=== PATIENT | male | born 1995 | race Caucasian/White ===

== ENCOUNTER 2023-05-19 13:38 | Outpatient (AMB) | payer OTHER, SELFPAY ==
[2023-05-19 13:43] VITALS: BP 102/62; PULSE 69; O2SAT 99; BMI 25.1
--- NOTE | 2023-05-19 13:43 | A.OFFPC_ITS ---
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 Accompanied by: Self / Same As Patient Allergies No Known Allergies Allergy (Verified 05/19/23 14:10) Medication List - Last Reconciled 05/19/23 by Regino Desai MD No Known Home Meds Tobacco use date assessed: 05/19/23 Dental Screening Dental Screen Date: 05/19/23 Did you have a dental visit in the last 12 months?: Yes Did you have a dental problem in the last 6 months where you did not have access to dental care?: No Was dental information given to patient?: Patient has dentist HPI 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 HPI Details Patient comes in today to establish care - is a new patient to the practice States that he has been experiencing on and off pain over his upper chest wall/collarbone area for the past couple of months and that the pain would radiate into his back (around the shoulder blade area) at times He is currently working out/exercising at a local gym regularly and states that his symptoms do not seem to have any (consistent) association with activity or exertion as they have not bothered him while he was working out over the past couple of weeks Relates that his symptoms do not seem to be associated with any shortness of breath, headaches or dizziness but he is starting to feel worried / anxious about his symptoms States that he feels okay otherwise No nausea/vomiting, no abdominal pain No change in bowel habits noted He denies any acute urinary symptoms [facility] Medical History (Updated 05/19/23 @ 14:40 by Regino Desai MD) History of alcohol use History of drug use Anxiety Surgical History (Updated 05/19/23 @ 14:34 by Regino Desai MD) No pertinent past surgical history Family History Other HTN (hypertension) Heart attack Substance abuse Social History Housing: Apartment Patient Tobacco Use Status: Former Tobacco user e-Cigarette/Vaping Use: Former Use service: No Current occupational status: employed 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 1. Little interest or pleasure in doing things: not at all 2. Feeling down, depressed, or hopeless: not at all 3. Trouble falling or staying asleep, or sleeping too much: not at all 4. Feeling tired or having little energy: not at all 5. Poor appetite or overeating: not at all 6. Feeling bad about yourself - or that you are a failure or have let yourself or your family down: not at all 7. Trouble concentrating on things, such as reading the newspaper or watching television: not at all 8. Moving or speaking so slowly that other people could have noticed. Or the opposite - being so fidgety or restless that you have been moving around a lot more than usual: not at all 9. Thoughts that you would be better off or of hurting yourself in some way: not at all Total score: 0 Depression Screening Interpretation: Negative 49294 - PHQ-9 Billing: Yes Source: Developed by Drs. Min Cerrato, Reta Christina, Byron Baxter and colleagues, with an educational dre from [employer]. Thrive Questionnaire Date Thrive assessed: 05/19/23 I am a: Patient What is your living situation today?: I have a steady place to live Within the past 12 months, did the food you bought not last and you didn't have the money to get more?: Never true Within the past 12 months, did you worry whether your food would run out before you got money to buy more?: Never true Do you have trouble paying for medicines?: No Do you have trouble getting transportation to medical appointments?: No Do you have trouble paying your heating and electricity bill?: No Do you have trouble taking care of your child, family member or friend?: No Do you have trouble with day-to-day activities such as bathing, preparing meals, shopping, managing finances, etc.?: No Are you currently unemployed and looking for a job?: No Are you interested in more education?: No Currently or been in a relationship where the following occur: no concerns reported AUDIT C Alcohol Use Questionnaire (AUDIT-C) 1. How often do you have a drink containing alcohol?: Never 3. How often do you have six or more drinks on one occasion?: Never Total Score: 0 Score Reviewed/Action Taken: Yes ANGEL-7 AMB Questionnaire ANGEL-7 Date ANGEL - 7 assessed: 05/19/23 Feeling nervous, anxious, or on edge: 2 = More than half the days Not being able to stop or control worryin = Not at all Worrying too much about different things: 0 = Not at all Trouble relaxin = Not at all Being so restless that it is hard to sit still: 0 = Not at all Becoming easily annoyed or irritable: 0 = Not at all Feeling afraid as if something awful might happen: 0 = Not at all Total ANGEL-7 score (0-4 normal; 5-9 mild; 10-14 moderate; 15-21 severe): 2 Source: Developed by Drs. Min Cerrato, Reta Christina, Byron Baxter and colleagues, with an educational dre from [employer]. Review of Systems Const Denies chills, Denies fatigue, Denies fever(s), Denies headache(s), Denies malaise and Denies weakness Eyes Denies blurry vision, Denies change in vision, Denies irritation and Denies itchy eyes ENT Denies dysphagia, Denies dizziness, Denies otalgia, Denies headache(s), Denies nasal congestion, Denies neck pain, Denies odynophagia and Denies sore throat Card Reports chest pain (on and off over the upper chest wall - see HPI), Denies chest pain with activity, Denies rapid heart rate, Denies irregular heart rhythm, Denies palpitations and Denies dyspnea Resp Denies chest congestion, Denies cough, Denies dyspnea and Denies wheezing GI Denies abdominal pain, Denies bloating, Denies constipation, Denies dysphagia, Denies heartburn, Denies diarrhea, Denies nausea, Denies odynophagia and Denies vomiting Denies hematuria, Denies difficulty urinating, Denies dysuria, Denies urinary frequency and Denies urinary urgency Musc Details: on and off sharp pains over the right upper chest muscles that radiate up into the clavicular area and back to the scapular area at times Denies back pain, Denies arthralgias, Denies joint swelling, Denies muscle weakness and Denies neck pain Skin/Breast Denies change in pigmentation, Denies lesions, Denies rash and Denies unusual bruising Neuro Denies dizziness, Denies headache(s), Denies paresthesias and Denies weakness Psych Reports anxiety Endo Denies fatigue and Denies palpitations Aller/Immun Denies itchy eyes and Denies wheezing Physical exam (Primary Care) Vital Signs: Last Vital Signs Pulse 69 05/19/23 13:43 BP 102/62 05/19/23 13:43 Pulse Ox 99 05/19/23 13:43 Oxygen Delivery Method Room Air 05/19/23 13:43 BMI result Body Mass Index 25.1 Tobacco/Smoking Status: Tobacco use Status Tobacco use date assessed 05/19/23 05/19/23 13:51 Patient Tobacco Use Status Former Tobacco user 05/19/23 13:51 e-Cigarette/Vaping Use Former Use 05/19/23 13:51 PHQ-9: PHQ-9 Score PHQ-9: Total score 0 05/19/23 14:36 Depression Screening Interpretation: Negative Thrive Assessment: Date of Thrive Assessment Date Thrive assessed 05/19/23 05/19/23 13:51 Currently or been in a relationship where the following occur: no concerns reported Const General: no acute distress, alert and awake Orientation/consciousness: patient oriented x3 HENMT Head: Yes normocephalic and Yes atraumatic Ears: external ears normal, TM's normal bilaterally and EAC's normal General nose exam: No nasal discharge present Face and sinus: Yes normal facial exam and Yes sinuses nontender Teeth and gingiva: dentition normal Throat: Yes posterior oropharynx normal and Yes tonsils normal (no TP congestion) Eyes Eyelids: Yes eyelids normal Conjunctivae: conjunctivae normal Pupils: Equal, round and reactive pupils present EOM: EOMs intact bilaterally Neck Neck: Yes no lymphadenopathy and Yes supple Thyroid: Thyroid normal Chest Other: No reproducible tenderness elicited on exam/palpation over the entire right chest wall/muscles Chest palpation & inspection: normal inspection of the chest, normal palpation of entire chest wall and no tenderness Resp Auscultation: clear to auscultation bilaterally, no rales and no wheezes Cardio Rate: regular rate Rhythm: regular rhythm Heart sounds: no murmurs GI Palpation (GI): Soft to palpation, nontender and No hepatosplenomegaly present Auscultation: normal bowel sounds General: Yes no CVA tenderness Back/Spine/Pelvis Back: no CVA tenderness Thoracic/Lumbar Spine: thoracic and lumbar spine normal to inspection Skin Lesions: no lesions Rashes: no rashes Neuro General: patient oriented x3, moves all extremities, no focal motor deficits and CN's II-XI intact bilaterally Cranial nerves: Yes Equal, round and reactive pupils present Cognition (Neuro): normal cognition Gait exam (Neuro): Normal gait present Extrem General: Yes no clubbing, cyanosis or edema Right upper extremity: shoulder/upper arm Details: normal ROM; no tenderness Assessment and Plan Assessment & Plan (1) Annual physical exam: Code(s): Z00.00 - Encounter for general adult medical examination without abnormal findings Plan: Check labs Patient advised that we will check back with him if any of his routine labs come out with significantly abnormal or unusual results (2) Chest wall muscle strain: Code(s): S29.011A - Strain of muscle and tendon of front wall of thorax, initial encounter Qualifiers: Encounter type: initial encounter Qualified Code(s): S29.011A - Strain of muscle and tendon of front wall of thorax, initial encounter Plan: He is reassured that his recent upper chest wall symptoms/pain appear to be mostly musculoskeletal in etiology, likely some muscular strain Have advised him to try to avoid any intense exertion or activity, including while he is working out at the gym, for a few weeks to allow up upper chest wall muscles some time to recover May try applying some warm compress over his upper chest wall PRN for symp tomatic relif (3) Anxiety: Code(s): F41.9 - Anxiety disorder, unspecified Plan: Feels that he has been doing well and is able to cope and manage his anxiety on his own lately As advised, will refer him for counseling/therapy - advised that even just having somebody to talk to regularly every couple of weeks or so can make a lot of difference for his anxiety Plan To return in 1 year for his next annual physical examination Orders: Orders TSH reflex Free T4 05/19/23 Z00.00 - Encounter for general adult medical examination without abnormal findings, F41.9 - Anxiety disorder, unspecified Vitamin D 25-OH Total 05/19/23 E55.9 - Vitamin D deficiency, unspecified, Z00.00 - Encounter for general adult medical examination without abnormal findings, F41.9 - Anxiety disorder, unspecified Complete Blood Count Auto Diff 05/19/23 Z00.00 - Encounter for general adult medical examination without abnormal findings Comprehensive [place]. Panel Fast 05/19/23 Z00.00 - Encounter for general adult medical examination without abnormal findings, F41.9 - Anxiety disorder, unspecified Lipid Panel 05/19/23 E78.00 - Pure hypercholesterolemia, unspecified, Z00.00 - Encounter for general adult medical examination without abnormal findings, F41.9 - Anxiety disorder, unspecified UA CC w/rflx Micro + Cult 05/19/23 R30.0 - Dysuria, Z00.00 - Encounter for general adult medical examination without abnormal findings, F41.9 - Anxiety disorder, unspecified Referrals Psychiatry Referral F41.9 - Anxiety disorder, unspecified Coding Level of Care Code New Pt Prev Care 18-39yr([id number] Diagnoses Annual physical exam Z00.00 Muscle strain of chest wall, initial encounter S29.011A Encounter type: initial encounter Anxiety F41.9
== END 2023-05-19 14:34 | disposition home or self-care (01) ==
PROVIDERS: Visit Provider Internal Medicine
DX: Z00.00 Encounter for general adult medical examination without abnormal findings (principal); S29.011A Strain of muscle and tendon of front wall of thorax, initial encounter; F41.9 Anxiety disorder, unspecified
CPT/HCPCS: 99385